=== PATIENT | male | born 1995 | race African-American/Black ===

== ENCOUNTER 2020-11-01 12:10 | Emergency (ER) | payer OTHER ==
[~2020-11-01] VITALS: Ht 182.9 cm; Wt 113.6 kg
[2020-11-01 12:14] VITALS: BP 124/78
== END 2020-11-01 14:50 | disposition left against medical advice (07) ==
LOC: EMS 12:10
DX: M25.561 Pain in right knee (principal); Z53.21 Procedure and treatment not carried out due to patient leaving prior to being seen by health care provider